=== PATIENT | male | born 1990 | race Two or more races ===

== ENCOUNTER 2020-06-18 01:53 | Emergency (ER) | payer SELFPAY ==
[~2020-06-18] VITALS: Ht 165.1 cm; Wt 68.2 kg
[2020-06-18] MEDS ORDERED: LORazepam 1 MG TABLET PO ONE (03:00)
[2020-06-18] MEDS ORDERED: FAMO20 PO (03:01)
[2020-06-18] MEDS ORDERED: MELA5TAB21 PO (03:02)
[2020-06-18] MEDS ORDERED: LORA10CA PO (03:02)
[2020-06-18 05:00] VITALS: BP 134/70
== END 2020-06-18 05:02 | disposition home or self-care (01) ==
LOC: EMS 01:54
DX: F41.9 Anxiety disorder, unspecified (principal)